=== PATIENT | male | born 1955 | race Caucasian/White ===

== ENCOUNTER 2018-06-24 01:38 | Emergency (ER) | payer MEDICAID ==
[2018-06-24 01:42] VITALS: BMI 29.2
--- NOTE | 2018-06-24 02:00 | ED PDOC ---
Arrival/HPI - General Time Seen by Provider: 06/24/18 01:41 Historian: Patient - History of Present Illness Narrative History of Present Illness (Text): 06/24/18 02:00 A 63 year old male, whose past medical history includes [place] (took Plavix for 1 yr, as directed by Dr. Jacobson), cardiac stents x 2, and anxiety, presents to the emergency department complaining of palpitations and abdominal pain. Patient reports when stomach growls, he can feel pain, but is uncertain if it is more of chest pain or abdominal pain. Notes as of now, patient feels heart rate has gone down a bit. Patient denies any shortness of breath, or any other complaints at this time. Past Medical History - Provider Review Nursing Documentation Reviewed: Yes Family/Social History - Physician Review Nursing Documentation Reviewed: Yes Family/Social History: No Known Family HX Allergies/Home Meds Allergies/Adverse Reactions: Allergies No Known Allergies Allergy (Verified 06/24/18 01:46) Home Medications: Home Meds Medication Instructions Recorded Confirmed Irbesartan 150 mg PO DAILY 06/24/18 06/24/18 metFORMIN [glucOPHAGE] 500 mg PO BID 06/24/18 06/24/18 Review of Systems - Physician Review All systems were reviewed & negative as marked: Yes - Review of Systems Respiratory: absent: SOB Cardiovascular: Palpitations Gastrointestinal: Abdominal Pain Physical Exam Pulse: Tachycardic Mental Status: Positive for: Alert and Oriented X 3 - Systems Exam Head: Present: Atraumatic, Normocephalic Pupils: Present: PERRL Extroacular Muscles: Present: EOMI Conjunctiva: Present: Normal Mouth: Present: Moist Mucous Membranes Neck: Present: Normal Range of Motion Respiratory/Chest: Present: Clear to Auscultation, Good Air Exchange, Other (tenderness to midsternal anterior chest wall). No: Respiratory Distress, Accessory Muscle Use Cardiovascular: Present: Normal S1, S2, Tachycardic. No: Murmurs Abdomen: No: Tenderness, Distention, Peritoneal Signs Back: Present: Normal Inspection Upper Extremity: Present: Normal Inspection. No: Cyanosis, Edema Lower Extremity: Present: Normal Inspection. No: Edema Neurological: Present: GCS=15, CN II-XII Intact, Speech Normal Skin: Present: Warm, Dry, Normal Color. No: Rashes Psychiatric: Present: Alert, Oriented x 3, Normal Insight, Normal Concentration Medical Decision Making ED Course and Treatment: 06/24/18 01:59 Impression: 63 year old male with palpitations and abdominal pain. Plan: -- EKG -- Chest X-ray -- Labs -- Urinalysis -- Reassess and disposition Progress Notes: EKG: Ordered, reviewed, and independently interpreted the EKG. Rate : 113 BPM Rhythm : Sinus tachycardia Interpretation : No ST-segment elevations, no T-wave inversions. Comparison : No previous EKG for comparison. - Lab Interpretations Lab Results: 06/24/18 01:55 06/24/18 01:55 Lab Results 06/24/18 01:55: Sodium 139, Potassium 3.8, Chloride 101, Carbon Dioxide 29, Anion Gap 13, BUN 10, Creatinine 0.8, Est GFR ( Amer) > 60, Est GFR (Non- Af Amer) > 60, Random Glucose 199 H, Calcium 9.9, Magnesium 2.2, Total Bilirubin 0.4, AST 40, ALT 18, Alkaline Phosphatase 88, Troponin I < 0.01, NT-Pro-B Natriuret Pep 23.6, Total Protein 9.2 H, Albumin 4.9 H, Globulin 4.3, Albumin/Globulin Ratio 1.1 06/24/18 01:55: PT 10.5, INR 0.92, APTT 24.0 L 06/24/18 01:55: WBC 9.4, RBC 5.12, Hgb 14.3, Hct 43.0, MCV 84.0, MCH 27.9, MCHC 33.3, RDW 13.3, Plt Count 452 H, MPV 8.7, Gran % 49.9 L, Lymph % (Auto) 39.5 H, [place] % (Auto) 7.4 H, Eos % (Auto) 3.0, Baso % (Auto) 0.2, Gran # 4.68, Lymph # (Auto) 3.7 H, [place] # (Auto) 0.7 H, Eos # (Auto) 0.3, Baso # (Auto) 0.02 I have reviewed the lab results: Yes - RAD Interpretation Radiology Orders: 06/24/18 01:46 CHEST PORTABLE [RAD] Stat - Scribe Statement The provider has reviewed the documentation as recorded by the Elva Nieves Provider Scribe Attestation: All medical record entries made by the Scribe were at my direction and personally dictated by me. I have reviewed the chart and agree that the record accurately reflects my personal performance of the history, physical exam, medical decision making, and the department course for this patient. I have also personally directed, reviewed, and agree with the discharge instructions and disposition. Disposition/Present on Arrival - Present on Arrival Any Indicators Present on Arrival: No History of DVT/PE: No History of Uncontrolled Diabetes: No Urinary Catheter: No History of Decub. Ulcer: No - Disposition Have Diagnosis and Disposition been Completed?: Yes Diagnosis: Palpitations, Gastritis, Anxiety Disposition: HOME/ ROUTINE Disposition Time: 03:34 Patient Plan: Discharge Patient Problems: Current Active Problems Problem Status Onset Palpitations Acute Gastritis Acute Anxiety Acute Condition: IMPROVED Discharge Instructions (ExitCare): Anxiety, Adult (DC), Palpitations (DC) Print Language: RWANDAN Additional Instructions: All medical record entries made by the Scribe were at my direction and personally dictated by me. I have reviewed the chart and agree that the record accurately reflects my personal performance of the history, physical exam, medical decision making, and the department course for this patient. I have also personally directed, reviewed, and agree with the discharge instructions and disposition. Referrals: Deangelo Faust MD [Family Provider] - Follow up with primary Alhaji Jacobson MD [Staff Provider] - Follow up with primary Forms: [facility] (Macedonian)
[2018-06-24 02:10] LABS: BASO # 0.02 K/mm3 (0.0-2.0); BASO % 0.2 % (0.0-3.0); EOS # 0.3 (0.0-0.7); GRAN # 4.68 (1.4-6.5); GRAN % 49.9 % (50.0-68.0); HEMOGLOBIN 14.3 g/dL (14.0-18.0); LYMPH # 3.7 (1.2-3.4); LYMPH % 39.5 % (22.0-35.0); MEAN CORPUSCULAR HEMOGLOBIN 27.9 pg (25.0-35.0); MEAN CORPUSCULAR HGB CONC 33.3 g/dl (31.0-37.0); MEAN PLATELET VOLUME 8.7 fl (7.0-11.0); MONO # 0.7 (0.1-0.6); MONO % 7.4 % (1.0-6.0); RBC 5.12 10^6/uL (3.5-6.1); RED CELL DISTRIBUTION WIDTH 13.3 % (11.5-14.5); WHITE BLOOD COUNT 9.4 10^3/uL (4.5-11.0)
[2018-06-24 02:13] LABS: INR 0.92; PROTHROMBIN TIME 10.5 SECONDS (9.4-12.5)
[2018-06-24 02:20] LABS: ALB/GLOB RATIO 1.1 (1.1-1.8); ALBUMIN 4.9 g/dL (3.0-4.8); ALT/SGPT 18 U/L (7-56); AST/SGOT 40 U/L (17-59); BLOOD UREA NITROGEN 10 mg/dL (7-21); CALCIUM 9.9 mg/dL (8.4-10.5); GFR NON-AFRICAN AMERICAN > 60
[2018-06-24 02:28] LABS: B-TYPE NATRIURETIC PEPTIDE 23.6 pg/mL (0-450)
[2018-06-24 03:17] LABS: TROPONIN I < 0.01 ng/mL
[2018-06-24] MEDS ORDERED: Atrop/Hyosc/Scopal/PB Elixir (120 ml) PO STA (03:30)
[2018-06-24] MEDS ORDERED: Alum-Mag Hydrox-Simethicone Susp (30 mL) PO STA (03:30)
[2018-06-24 04:02] VITALS: BP 136/90; PULSE 90; RESP 17; O2SAT 100
[2018-06-24 04:03] VITALS: TEMP 98.3
--- NOTE | 2018-06-24 09:28 | RAD ---
Date of service: 06/24/2018 HISTORY: chest pain COMPARISON: No prior. FINDINGS: LUNGS: No active pulmonary disease. PLEURA: No significant pleural effusion identified, no pneumothorax apparent. CARDIOVASCULAR: No aortic atherosclerotic calcification present. Normal cardiac size. No pulmonary vascular congestion. OSSEOUS STRUCTURES: No significant abnormalities. VISUALIZED UPPER ABDOMEN: Normal. OTHER FINDINGS: None. IMPRESSION: No active disease.
--- NOTE | 2018-06-24 13:40 | CARD ---
APPROVED REPORT Date of service: 06/24/2018 EKG Measurement Heart [id number] <Conclusion> Sinus tachycardia Otherwise normal ECG
== END 2018-06-24 04:00 | disposition home or self-care (01) ==
LOC: ED 01:38
DX: K29.70 Gastritis, unspecified, without bleeding (principal); R00.2 Palpitations; F41.9 Anxiety disorder, unspecified; I25.2 Old myocardial infarction; Z95.5 Presence of coronary angioplasty implant and graft

== ENCOUNTER 2018-09-26 11:26 | Outpatient (CLI) | payer MEDICAID | END 2018-09-26 11:27 | disposition home or self-care (01) | LOC: CARDIO 11:26 | DX: R00.2 Palpitations (principal); I25.10 Atherosclerotic heart disease of native coronary artery without angina pectoris; I25.2 Old myocardial infarction; R94.31 Abnormal electrocardiogram [ECG] [EKG]; I10 Essential (primary) hypertension ==